=== PATIENT | female | born 1950 | race Caucasian/White ===

== ENCOUNTER 2017-02-10 15:21 | Inpatient (IN) | payer MEDICARE ==
[~2017-02-10] VITALS: Ht 157.5 cm; Wt 75.2 kg
[~2017-02-10 15:21] MED LIST: ALPR1TAB PO; AMLO1CAP4 PO; ATOR20TA9 PO; CALC200T24 PO; CARI350T PO; ONDA4TAB7 PO; OXYC-229 PO; OXYC40TA27 PO; POLY17PO5 PO
[2017-02-10] MEDS ORDERED: SODIUM CHLORIDE 0.9% 1,000 ML IV ONE (15:31)
[2017-02-10] MEDS ORDERED: SODIUM CHLORIDE 0.9% 1,000ML IV ONE (16:00)
[2017-02-10] MEDS ORDERED: DIAZEPAM 5 MG/ML, 2ML IVPush ONE (16:00)
[2017-02-10] MEDS ORDERED: SODIUM CHLORIDE FLUSH 10ML SYR IVF ONE (16:00)
[2017-02-10] MEDS ORDERED: HYDROmorphone 1 MG/ML, 1ML ONE ×2 (16:03→18:57)
[2017-02-10] MEDS ORDERED: ONDANSETRON 2MG/ML, 2ML ONE (16:03)
[2017-02-10] MEDS ORDERED: DIAZEPAM 5 MG/ML, 2ML ONE (16:03)
[2017-02-10] MEDS: HYDROmorphone 1 MG/ML, 1ML IVPush PRN ×2 (16:11→19:03)
[2017-02-10 16:20] LABS: ASPARTATE AMINO TRANSFERASE 11 U/L (15-37); BLOOD UREA NITROGEN 7 mg/dL (7-18)
[2017-02-10 16:39] LABS: PATH.CAST-FLAG NOT PRESENT; SPERM-FLAG NOT PRESENT; SRC-FLAG NOT PRESENT; XTAL-FLAG NOT PRESENT; YLC-FLAG NOT PRESENT
[2017-02-10] MEDS ORDERED: CLOT15CR6 TP (19:12)
[2017-02-10] MEDS ORDERED: NS + 20MEQ KCL 1,000 ML IV SCH (21:05)
[2017-02-10] MEDS ORDERED: BETAMETHASONE/CLOTRIMAZOLE CRM 1%-0.05%, 15GM TP SCH (21:30)
[2017-02-10] MEDS ORDERED: ACETAMINOPHEN 325 MG TABLET PO PRN (21:30)
[2017-02-10] MEDS ORDERED: ONDANSETRON 4 MG TABLET PO SCH (21:30)
[2017-02-10] MEDS ORDERED: ALPRAZOLAM 1 MG PO SCH (21:30)
[2017-02-10] MEDS ORDERED: CARISOPRODOL 350 MG TABLET PO PRN (21:30)
[2017-02-10] MEDS ORDERED: CARISOPRODOL 350 MG TABLET PO SCH (21:30)
[2017-02-10] MEDS ORDERED: BISACODYL 10 MG SUPP PR PRN (21:30)
[2017-02-10] MEDS ORDERED: ALPRAZOLAM 1 MG PO PRN (21:30)
[2017-02-10] MEDS ORDERED: ONDANSETRON 4 MG TABLET PO PRN (21:30)
[2017-02-11] MEDS ORDERED: CARISOPRODOL 350 MG TABLET PO PRN (00:20)
[2017-02-11] MEDS ORDERED: ONDANSETRON 4 MG TABLET PO PRN (00:20)
[2017-02-11 00:23] VITALS: BP 145/79
[2017-02-11] MEDS: OxyconTIN ER 20 MG TAB.ER PO SCH ×2 (00:35→10:54)
[2017-02-11] MEDS: HEPARIN 5,000 UNITS/ML, 1ML SQ SCH ×2 (00:36→10:54)
[2017-02-11] MEDS: OXYcodone/APAP 10/325MG TABLET PO PRN ×2 (00:58→10:55)
[2017-02-11 02:09] VITALS: BP 148/88
[2017-02-11 06:16] LABS: ASPARTATE AMINO TRANSFERASE 10 U/L (15-37); BLOOD UREA NITROGEN 9 mg/dL (7-18)
[2017-02-11 07:51] VITALS: BP 110/68
[2017-02-11] MEDS ORDERED: OXYC5TAB3 PO (11:55)
[2017-02-11] MEDS ORDERED: OXYcodone IR 5MG TABLET PO PRN (12:00)
[2017-02-11 15:01] VITALS: BP 98/53
== END 2017-02-11 15:37 | DRG 552 ==
LOC: ED 18:09 → EDIP 21:05 → 4NOR 23:22
PROVIDERS: ADMIT Family Medicine
DX: M54.5 Low back pain (principal); N13.30 Unspecified hydronephrosis; Q78.0 Osteogenesis imperfecta; Z90.89 Acquired absence of other organs; R62.7 Adult failure to thrive; M81.0 Age-related osteoporosis without current pathological fracture; E87.6 Hypokalemia; N18.9 Chronic kidney disease, unspecified; Z96.612 Presence of left artificial shoulder joint; Z96.641 Presence of right artificial hip joint; Z96.651 Presence of right artificial knee joint; Z99.3 Dependence on wheelchair; Z87.440 Personal history of urinary (tract) infections; Z88.6 Allergy status to analgesic agent; Z88.1 Allergy status to other antibiotic agents; Z88.0 Allergy status to penicillin; Z88.2 Allergy status to sulfonamides; Z88.8 Allergy status to other drugs, medicaments and biological substances; Z90.49 Acquired absence of other specified parts of digestive tract; Z90.710 Acquired absence of both cervix and uterus
CPT/HCPCS: 36415; 80053; 81001; 82550; 83605; 83735; 85025; 93005; 96361; 96374; 96375; 96376; J1170; J1644; J3360; J3480; J7030

== ENCOUNTER 2017-04-27 09:31 | Emergency (ER) | payer MEDICARE ==
[~2017-04-27] VITALS: Ht 162.6 cm; Wt 81.0 kg
[~2017-04-27 09:31] MED LIST changes: +CLOT15CR6 TP; +OXYC5TAB3 PO
[2017-04-27 09:33] VITALS: BP 114/72
== END 2017-04-27 10:25 | disposition home or self-care (01) ==
LOC: ED 10:17
DX: Z76.0 Encounter for issue of repeat prescription (principal)
CPT/HCPCS: 99283

== ENCOUNTER 2017-07-18 10:44 | Emergency (ER) | payer MEDICARE ==
[~2017-07-18] VITALS: Ht 162.6 cm; Wt 75.0 kg
[~2017-07-18 10:44] MED LIST changes: +CIPR500T87 PO; +DIAZ5TAB4 PO; -OXYC-229 PO; +OXYC-307 PO; +SENN1TAB7 PO
[2017-07-18 10:52] VITALS: BP 131/89
== END 2017-07-18 12:35 | disposition home or self-care (01) ==
LOC: ED 12:29
DX: Z76.0 Encounter for issue of repeat prescription (principal); Q78.0 Osteogenesis imperfecta
CPT/HCPCS: 99283

== ENCOUNTER 2017-09-11 16:05 | Inpatient (IN) | payer MEDICARE, MEDICAID ==
[~2017-09-11] VITALS: Ht 162.6 cm; Wt 82.9 kg
[2017-09-11] MEDS ORDERED: OXYcodone IR 5MG TABLET ONE (17:17)
[2017-09-11] MEDS ORDERED: DIAZEPAM 5 MG TABLET ONE (17:17)
[2017-09-11] MEDS ORDERED: OXYcodone IR 5MG TABLET PO ONE (17:30)
[2017-09-11] MEDS ORDERED: DIAZEPAM 5 MG TABLET PO ONE (17:30)
[2017-09-11 18:00] LABS: WHITE BLOOD COUNT 6.4 x10^3/uL (3.4-10)
[2017-09-11 18:05] LABS: ASPARTATE AMINO TRANSFERASE 8 U/L (15-37); BLOOD UREA NITROGEN 6 mg/dL (7-18)
[2017-09-11] MEDS ORDERED: ONDANSETRON 2MG/ML, 2ML IVPush PRN (20:00)
[2017-09-11] MEDS ORDERED: LACTATED RINGERS 1,000 ML IV SCH (20:00)
[2017-09-11] MEDS ORDERED: CEFTRIAXONE PMX 1GM/50ML 50 ML IV ONE (20:00)
[2017-09-11] MEDS ORDERED: ACETAMINOPHEN 325 MG TABLET PO PRN (20:00)
[2017-09-11] MEDS ORDERED: CEFTRIAXONE PMX 1GM/50ML 50 ML ONE (20:25)
[2017-09-11 21:07] VITALS: BP 130/75
[2017-09-11] MEDS: OxyconTIN ER 40 MG TAB.ER PO SCH (21:17)
[2017-09-11] MEDS: DIAZEPAM 5 MG TABLET PO PRN (21:17)
[2017-09-11] MEDS: CARISOPRODOL 350 MG TABLET PO PRN (22:15)
[2017-09-11] MEDS: ENOXAPARIN 40 MG/0.4 ML SQ SCH (22:16)
[2017-09-11] MEDS: LACTULOSE 10 GM/15 ML UDC PO SCH (22:41)
[2017-09-11] MEDS: OXYcodone IR 5MG TABLET PO PRN (23:18)
[2017-09-12] MEDS: OXYcodone IR 5MG TABLET PO PRN ×5 (03:17→22:23)
[2017-09-12] MEDS: DIAZEPAM 5 MG TABLET PO PRN ×3 (03:17→16:31)
[2017-09-12 03:27] VITALS: BP 108/70
[2017-09-12] MEDS: CARISOPRODOL 350 MG TABLET PO PRN ×3 (06:13→23:32)
[2017-09-12] MEDS: OxyconTIN ER 40 MG TAB.ER PO SCH ×2 (08:21→20:22)
[2017-09-12] MEDS: LACTULOSE 10 GM/15 ML UDC PO SCH ×2 (08:22→20:22)
[2017-09-12 08:30] VITALS: BP 101/66
[2017-09-12 12:10] VITALS: BP 108/76
[2017-09-12 18:39] VITALS: BP 112/74
[2017-09-12] MEDS ORDERED: CEFTRIAXONE PMX 1GM/50ML 50 ML IV SCH (20:00)
[2017-09-12] MEDS: ENOXAPARIN 40 MG/0.4 ML SQ SCH (22:23)
[2017-09-13] MEDS: DIAZEPAM 5 MG TABLET PO PRN ×4 (00:39→23:23)
[2017-09-13 02:30] VITALS: BP 106/75
[2017-09-13] MEDS: OXYcodone IR 5MG TABLET PO PRN ×5 (03:55→23:23)
[2017-09-13 07:22] VITALS: BP 113/69
[2017-09-13] MEDS: OxyconTIN ER 40 MG TAB.ER PO SCH ×2 (09:11→21:14)
[2017-09-13] MEDS: LACTULOSE 10 GM/15 ML UDC PO SCH ×2 (09:13→21:14)
[2017-09-13] MEDS: PHENAZOPYRIDINE 200 MG TABLET PO PRN ×2 (12:08→21:28)
[2017-09-13 17:11] VITALS: BP 122/81
[2017-09-13] MEDS: CARISOPRODOL 350 MG TABLET PO PRN ×2 (18:02→21:14)
[2017-09-13 20:53] VITALS: BP 108/68
[2017-09-13] MEDS: ENOXAPARIN 40 MG/0.4 ML SQ SCH (21:14)
[2017-09-14 01:19] VITALS: BP 100/65
[2017-09-14] MEDS: OXYcodone IR 5MG TABLET PO PRN ×6 (03:31→23:42)
[2017-09-14 05:20] LABS: BLOOD UREA NITROGEN 13 mg/dL (7-18)
[2017-09-14 05:30] LABS: HEMATOCRIT 38.1 % (34.6-47.8); HEMOGLOBIN 13.1 g/dL (11.7-16.4); WHITE BLOOD COUNT 5.2 x10^3/uL (3.4-10)
[2017-09-14] MEDS: CARISOPRODOL 350 MG TABLET PO PRN ×2 (06:30→17:22)
[2017-09-14 06:52] VITALS: BP 97/61
[2017-09-14] MEDS: DIAZEPAM 5 MG TABLET PO PRN ×3 (07:24→22:19)
[2017-09-14] MEDS: OxyconTIN ER 40 MG TAB.ER PO SCH ×2 (09:04→20:56)
[2017-09-14] MEDS: LACTULOSE 10 GM/15 ML UDC PO SCH ×2 (09:04→20:56)
[2017-09-14] MEDS ORDERED: ONDANSETRON ODT 4 MG ONE (09:15)
[2017-09-14] MEDS ORDERED: ONDANSETRON 4 MG TABLET PO PRN (09:30)
[2017-09-14] MEDS ORDERED: ONDANSETRON ODT 4 MG PO PRN (09:30)
[2017-09-14] MEDS: SODIUM CHLORIDE 0.9% 1,000 ML IV SCH ×2 (11:00→20:56)
[2017-09-14 13:28] VITALS: BP 90/61
[2017-09-14] MEDS ORDERED: CATHFLO-ALTEPLASE 2 MG/2 ML CATHFLUSH ONE ×2 (13:30→16:00)
[2017-09-14 14:48] VITALS: BP 101/64
[2017-09-14 19:21] VITALS: BP 100/60
[2017-09-14] MEDS ORDERED: CEFTRIAXONE PMX 1GM/50ML 50 ML IV SCH (19:30)
[2017-09-14] MEDS: ENOXAPARIN 40 MG/0.4 ML SQ SCH (20:57)
[2017-09-15 01:16] VITALS: BP 108/68
[2017-09-15] MEDS: CARISOPRODOL 350 MG TABLET PO PRN ×3 (01:37→19:40)
[2017-09-15] MEDS: OXYcodone IR 5MG TABLET PO PRN ×5 (03:41→21:58)
[2017-09-15] MEDS: DIAZEPAM 5 MG TABLET PO PRN ×4 (04:52→23:05)
[2017-09-15 06:32] VITALS: BP 104/68
[2017-09-15] MEDS: OxyconTIN ER 40 MG TAB.ER PO SCH ×2 (07:55→20:52)
[2017-09-15] MEDS: LACTULOSE 10 GM/15 ML UDC PO SCH ×2 (07:55→20:52)
[2017-09-15] MEDS: SODIUM CHLORIDE 0.9% 1,000 ML IV SCH ×2 (07:55→17:39)
[2017-09-15 14:20] VITALS: BP 99/64
[2017-09-15 19:17] VITALS: BP 107/67
[2017-09-15] MEDS: ENOXAPARIN 40 MG/0.4 ML SQ SCH (20:52)
[2017-09-15 22:06] LABS: PATH.CAST-FLAG NOT PRESENT; SPERM-FLAG NOT PRESENT; SRC-FLAG NOT PRESENT; XTAL-FLAG NOT PRESENT; YLC-FLAG NOT PRESENT
[2017-09-16 01:12] VITALS: BP 105/71
[2017-09-16] MEDS: OXYcodone IR 5MG TABLET PO PRN ×4 (01:48→15:06)
[2017-09-16] MEDS: CARISOPRODOL 350 MG TABLET PO PRN ×2 (04:13→13:34)
[2017-09-16] MEDS: SODIUM CHLORIDE 0.9% 1,000 ML IV SCH ×2 (04:26→14:55)
[2017-09-16] MEDS: DIAZEPAM 5 MG TABLET PO PRN ×2 (08:13→15:05)
[2017-09-16 08:15] VITALS: BP 106/68
[2017-09-16] MEDS: OxyconTIN ER 40 MG TAB.ER PO SCH (09:00)
[2017-09-16] MEDS: LACTULOSE 10 GM/15 ML UDC PO SCH (09:00)
[2017-09-16 14:48] VITALS: BP 102/60
== END 2017-09-16 16:44 | DRG 690 ==
LOC: ED 17:13 → SUATTDRO 19:50 → EDIP 19:52 → 3NE 20:50
PROVIDERS: ADMIT Hospitalist; ATTEND Family Medicine
PROC: 0T9B70Z Drainage of Bladder with Drainage Device, Via Natural or Artificial Opening (ICD-10-PCS; principal; 2017-09-11)
DX: N39.0 Urinary tract infection, site not specified (principal); F11.20 Opioid dependence, uncomplicated; Q78.0 Osteogenesis imperfecta; N13.30 Unspecified hydronephrosis; G89.4 Chronic pain syndrome; B96.20 Unspecified Escherichia coli [E. coli] as the cause of diseases classified elsewhere; M81.0 Age-related osteoporosis without current pathological fracture; Z96.612 Presence of left artificial shoulder joint; Z96.641 Presence of right artificial hip joint; F41.9 Anxiety disorder, unspecified; Z96.651 Presence of right artificial knee joint; Z90.49 Acquired absence of other specified parts of digestive tract; Z87.440 Personal history of urinary (tract) infections; Z90.710 Acquired absence of both cervix and uterus; Z90.89 Acquired absence of other organs; Z88.6 Allergy status to analgesic agent; Z88.4 Allergy status to anesthetic agent; Z88.1 Allergy status to other antibiotic agents; Z88.5 Allergy status to narcotic agent; Z88.0 Allergy status to penicillin; Z88.2 Allergy status to sulfonamides; Z88.8 Allergy status to other drugs, medicaments and biological substances; Z79.899 Other long term (current) drug therapy
CPT/HCPCS: 36415; 80048; 80053; 81001; 82040; 83735; 85025; 87077; 87086; 87186; 99285; J0696; J1650; J2405; J2997; Q0162; J7030; J7120

== ENCOUNTER 2018-08-19 01:29 | Emergency (ER) | payer MEDICARE ==
[~2018-08-19] VITALS: Ht 162.6 cm; Wt 90.0 kg
[~2018-08-19 01:29] MED LIST changes: -SENN1TAB7 PO; +SENN1TAB8 PO
[2018-08-19] MEDS ORDERED: SODIUM CHLORIDE 0.9% 1,000ML IVBOLUS ONE (02:00)
[2018-08-19] MEDS ORDERED: ONDANSETRON 2MG/ML, 2ML IVPush ONE (02:00)
[2018-08-19 02:12] LABS: BASOPHILS # (AUTO) 0.05 x10^3/uL (0-0.1); BASOPHILS % (AUTO) 1 % (0-1); EOSINOPHILS # (AUTO) 0.15 x10^3/uL (0-0.4); EOSINOPHILS % (AUTO) 3 % (1-7); LYMPHOCYTES # (AUTO) 1.35 x10^3/uL (1-3.4); LYMPHOCYTES % (AUTO) 25 % (22-44); MD NO; MEAN CORPUSCULAR HGB CONC 34.2 g/dL (32.4-35.8); MEAN CORPUSCULAR VOLUME 87.7 fL (80-100); MEAN PLATELET VOLUME 6.6 fL (7.4-10.4); MONOCYTES # (AUTO) 0.32 x10^3/uL (0.2-0.8); MONOCYTES % (AUTO) 6 % (2-9); NEUTROPHILS # (AUTO) 3.51 x10^3/uL (1.8-6.8); NEUTROPHILS % (AUTO) 65 % (42-75); PLATELET COUNT 271 x10^3/uL (130-400); RED BLOOD COUNT 4.47 x10^6/uL (3.82-5.3); RED CELL DISTRIBUTION WIDTH 13.2 % (9.6-15.2)
[2018-08-19] MEDS ORDERED: ONDANSETRON 2MG/ML, 2ML ONE (02:23)
[2018-08-19] MEDS ORDERED: MORPHINE SULFATE 4 MG/ML, 1ML ONE ×3 (02:23→05:02)
[2018-08-19 02:24] LABS: ALBUMIN 3.5 g/dL (3.4-5.0); ANION GAP 9 mmol/L (5-15); CALCIUM 8.4 mg/dL (8.5-10.1); CHLORIDE 112 mmol/L (98-107); CREATININE 0.66 mg/dL (0.55-1.02)
[2018-08-19] MEDS: MORPHINE SULFATE 4 MG/ML, 1ML IVPush PRN ×2 (02:27→03:04)
[2018-08-19 02:55] LABS: CULTURE INDICATED? YES; MICROSCOPIC INDICATED
[2018-08-19] MEDS ORDERED: CEFDINIR 300 MG CAPSULE ONE (03:23)
[2018-08-19 03:29] VITALS: BP 132/60
[2018-08-19] MEDS ORDERED: CEFDINIR 300 MG CAPSULE PO ONE (03:30)
[2018-08-19] MEDS ORDERED: PHENAZOPYRIDINE 100 MG TABLET ONE (03:41)
[2018-08-19] MEDS ORDERED: PHENAZOPYRIDINE 200 MG TABLET PO ONE (04:00)
[2018-08-19] MEDS ORDERED: MORPHINE SULFATE 4 MG/ML, 1ML IVPush ONE (05:30)
== END 2018-08-19 05:22 | disposition home or self-care (01) ==
LOC: ED 02:04
DX: N30.00 Acute cystitis without hematuria (principal); Z90.49 Acquired absence of other specified parts of digestive tract; Z90.710 Acquired absence of both cervix and uterus; Z96.641 Presence of right artificial hip joint; Z96.651 Presence of right artificial knee joint
CPT/HCPCS: 36415; 76770; 80048; 81001; 82040; 85025; 87077; 87086; 87186; 96361; 96374; 96375; 96376; 99285; J2405; J7030